=== PATIENT | male | born 2000 | race Caucasian/White ===

== ENCOUNTER 2020-10-31 17:40 | Emergency (ER) | payer OTHER ==
[~2020-10-31] VITALS: Ht 175.3 cm; Wt 72.6 kg
== END 2020-10-31 19:15 | disposition home or self-care (01) ==
LOC: ER 18:54
DX: R00.2 Palpitations (principal); R20.2 Paresthesia of skin
CPT/HCPCS: 93005; 99282

== ENCOUNTER 2021-07-06 08:14 | Emergency (ER) | payer OTHER ==
[~2021-07-06] VITALS: Ht 175.3 cm; Wt 83.9 kg
[2021-07-06 10:10] VITALS: BP 127/76
== END 2021-07-06 10:00 | disposition home or self-care (01) ==
LOC: ER 08:18
DX: R07.89 Other chest pain (principal); R00.2 Palpitations; R42 Dizziness and giddiness; R20.0 Anesthesia of skin; F17.210 Nicotine dependence, cigarettes, uncomplicated
CPT/HCPCS: 71045; 93005; 99283